=== PATIENT | female | born 1970 | race Caucasian/White ===

== ENCOUNTER 2017-01-29 22:36 | Emergency (ER) | payer OTHER ==
[~2017-01-29] VITALS: Ht 165.1 cm; Wt 68.0 kg
[2017-01-29 22:43] VITALS: BP_SYST 136
--- NOTE | 2017-01-29 22:43 | NUR ---
Patient to ER bed 4 for evaluation. Side rails up. Report given to STAR Hernandez.
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
--- NOTE | 2017-01-29 22:55 | NUR ---
ED MD Wilson at bedside for medical evaluation.
--- NOTE | 2017-01-29 23:20 | NUR ---
Radiology at bedside.
[2017-01-29] MEDS ORDERED: IBUPROFEN 100 MG/5 ML UDC PO ONE (23:30)
--- NOTE | 2017-01-30 00:05 | NUR ---
Patient transported off unit for CT via gurney by radiology staff.
--- NOTE | 2017-01-30 00:22 | NUR ---
Patient returned to unit from CT via gurney by radiology staff.
--- NOTE | 2017-01-30 00:47 | NUR ---
Patient reports pain 3/10 60 minutes after administration of 600mg Ibuprofen PO. No adverse reactions noted. Will continue to monitor.
[2017-01-30 01:15] VITALS: BP_SYST 131
--- NOTE | 2017-01-30 01:15 | NUR ---
Patient given written and verbal discharge instructions and verbalizes understanding. ER MD discussed with patient the results and treatment provided. Patient in stable condition. ID arm band removed. No Rx given. Patient educated on pain management and to follow up with PMD. Pain Scale 3/10 tolerable for patient. Opportunity for questions provided and answered.
== END 2017-01-30 01:15 | disposition home or self-care (01) ==
LOC: SED 22:36
DX: S13.4XXA Sprain of ligaments of cervical spine, initial encounter (principal); S60.00XA Contusion of unspecified finger without damage to nail, initial encounter; S50.811A Abrasion of right forearm, initial encounter; S90.811A Abrasion, right foot, initial encounter; V89.2XXA Person injured in unspecified motor-vehicle accident, traffic, initial encounter; Y93.89 Activity, other specified; Y92.410 Unspecified street and highway as the place of occurrence of the external cause; Y99.8 Other external cause status
CPT/HCPCS: 71010; 71120-TC; 72125-TC; 81025; 99284